=== PATIENT | male | born 1995 | race Caucasian/White ===

== ENCOUNTER 2016-09-29 10:26 | Emergency (ER) | payer OTHER ==
[2016-09-29 10:46] VITALS: O2SAT 97
[2016-09-29] MEDS ORDERED: IBUPROFEN 600 MG TAB PO ONE ×2 (10:47→10:49)
--- NOTE | 2016-09-29 11:31 | EDPHY ---
H & P Time Seen by Provider: 09/29/16 10:41 HPI/ROS: CHIEF COMPLAINT: Right eye laceration HISTORY OF PRESENT ILLNESS: 21-year-old male presents to the emergency department by ambulance after he fell off of his long board and sustained a laceration to the right eyebrow. The patient states that he was not wearing a helmet. He hit a crack in the sidewalk and then fell forward hitting his head. He did not lose consciousness. He denies a headache. Denies neck or back pain. Denies chest pain or difficulty breathing. He did chipped 1 of his right upper back teeth. He denies dysphagia or other jaw pain. He denies abdominal pain. Denies chest pain or difficulty breathing. Denies paresthesias in upper or lower extremities. He has a [employer] student believes his tetanus shot is current. REVIEW OF SYSTEMS: Constitutional: No fever, no chills. Eyes: No double or blurry vision. ENT: No sore throat. Respiratory: No cough, no shortness of breath. Cardiac: No chest pain. Gastrointestinal: No abdominal pain, vomiting or diarrhea. Genitourinary: No dysuria. Musculoskeletal: No neck or back pain. Skin: Right eyebrow laceration. No rashes. Neurological: No headache. Past Medical/Surgical History: Negative Social History: [employer] student studying [employer] Smoking Status: Never smoked Physical Exam: General Appearance: Alert, no distress. Mentating normally and answering questions appropriately. Eyes: Pupils equal and round. Extraocular motions are all intact. ENT: Mouth: Mucous membranes moist. Respiratory: No wheezing, rhonchi, or rales, lungs are clear to auscultation. Cardiovascular: Regular rate and rhythm. Gastrointestinal: Abdomen is soft and nontender, no masses, no rebound or guarding, bowel sounds normal. Neurological: Alert and oriented x 3, cranial nerves II through XII grossly intact Skin: 3 cm right eyebrow laceration noted. It is gaping. No visible retained foreign body. Nontender to palpate over the inferior or superior orbital rim on the right side. Warm and dry, no rashes. Musculoskeletal: Nontender to palpate along the cervical, thoracic or lumbar spine. Neck is supple. Extremities: Full range of motion and no peripheral edema. Psychiatric: Patient is oriented X 3, there is no agitation. Constitutional: Initial Vital Signs Temperature (C) 37.3 C 09/29/16 10:26 Heart Rate 82 09/29/16 10:26 Respiratory Rate 16 09/29/16 10:26 Blood Pressure 141/76 H 09/29/16 10:26 O2 Sat (%) 97 09/29/16 10:26 O2 Delivery Mode Room Air Medical Decision Making Procedures: Laceration repair. Verbal consent was obtained from the patient. The 3 cm laceration on the right eyebrow was anesthetized using 1% lidocaine with epinephrine. The wound was irrigated with saline, draped and explored to its base with a gloved finger. There were no deep structures involved. The wound was repaired with 6 0 Prolene, 8 sutures. The wound repair was simple. The procedure was performed by myself. ED Course/Re-evaluation: 21-year-old male presents with right eyebrow laceration the wound was repaired, see procedure note. The patient had no loss of consciousness. He has no headache. He is mentating normally. Patient was given closed-head injury precautions. He was also told to avoid any activity that might put him at risk for another head injury for at least 1 week. He will return if he develops worsening headache, vomiting, altered mental status, or if you feel worse in any way. Differential Diagnosis: Head injury including but not limited to concussion, skull fracture, intraparenchymal contusion, subarachnoid, subdural and epidural hematoma. - Data Points Medications Given: Discontinued Medications Ibuprofen (Motrin) 600 mg PO EDNOW ONE Stop: 09/29/16 10:50 Last Admin: 09/29/16 10:49 Dose: 600 mg Departure - Departure Disposition: Home, Routine, Self-Care Clinical Impression: Laceration of right eyebrow Qualifiers: Encounter type: initial encounter Qualifier Code: (S01.111A) Laceration without foreign body of right eyelid and periocular area, initial encounter Chipped tooth Qualifiers: Encounter type: initial encounter Fracture type: closed Qualifier Code: ( S02.5XXA) Fracture of tooth (traumatic), initial encounter for closed fracture Condition: Good Instructions: Laceration (ED), Care For Your Stitches (ED), Acute Wound Care ( ED), Acute Dental Trauma (ED) Additional Instructions: You should follow up with your dentist regarding your chipped right upper tooth. Wound Care Follow-Up: Removal of sutures in 5 days. Suture removal is complimentary in uncomplicated cases. Infection or abnormal findings would require reevaluation by the MD. In that case, you may be billed. Referrals: Patient,NotPresent [Unknown] - As per Instructions
[2016-09-29 12:43] VITALS: BP 128/65; PULSE 75; RESP 18; TEMP 98.1
== END 2016-09-29 12:41 | disposition home or self-care (01) ==
PROC: 0HQ1XZZ Repair Face Skin, External Approach (ICD-10-PCS; principal; 2016-09-29)
DX: S01.111A Laceration without foreign body of right eyelid and periocular area, initial encounter (principal); S02.5XXA Fracture of tooth (traumatic), initial encounter for closed fracture; W18.09XA Striking against other object with subsequent fall, initial encounter; Y92.480 Sidewalk as the place of occurrence of the external cause